=== PATIENT | female | born 1980 | race Two or more races ===

== ENCOUNTER 2024-09-26 20:23 | Emergency (ER) | payer MEDICAID, OTHER ==
[~2024-09-26] VITALS: Ht 170.2 cm; Wt 81.6 kg
[2024-09-27] MEDS ORDERED: SULF1TAB48 PO (00:51)
[2024-09-27 01:16] VITALS: BP 113/69; TEMP 99.1; O2SAT 98
== END 2024-09-27 01:17 | disposition home or self-care (01) ==
LOC: ER 20:32
DX: L03.317 Cellulitis of buttock (principal)